=== PATIENT | male | born 1965 | race Caucasian/White ===

== ENCOUNTER → 2020-10-30 11:57 | Outpatient (CLI) | payer MEDICARE, OTHER, SELFPAY | PROVIDERS: Visit Provider Internal Medicine Gastroenterology | DX: Z01.812 Encounter for preprocedural laboratory examination (principal); Z20.822 Contact with and (suspected) exposure to COVID-19; Z12.11 Encounter for screening for malignant neoplasm of colon | CPT/HCPCS: U0003 ==

== ENCOUNTER 2020-11-01 07:11 | Day surgery (SDC) | payer MEDICARE, OTHER, SELFPAY ==
[2020-10-22 09:46] VITALS: BMI 24.7
[2020-11-01] VITALS (7 sets, daily range): BP systolic 107–146; BP diastolic 64–82; PULSE 71–95; RESP 18; TEMP 36.3–36.8; O2SAT 95–97
[2020-11-01 07:50] LABS: POC Glucose,Bedside 158 (70-110)
--- NOTE | 2020-11-01 08:29 | P.PCN_ITS ---
[facility] Procedure Note Procedure Note:: Colonoscopy Procedure Report: Colonoscopy with cold biopsies Endoscopist: Poli Goldstein II, MD Referring physician: Sonali North MD Date of Procedure: November 01, 2020 Equipment: Olympus 190 variable stiffness pediatric colonoscope Sedation: MAC sedation Indication: Mr. Urbina is a 55-year-old gentleman who is here for follow-up high risk screening colonoscopy. His mother had advanced adenomatous colon polyps and his maternal grandmother had colon cancer. The patient did have a colonoscopy in September 2008 which showed some mild proctitis. His last colonoscopy in October 2014 was entirely normal. He has not conveyed any abdominal complaints. He does have a history of reflux and dysphagia. Procedure: Prior to the procedure, a history and physical exam was performed, and patient's medications and allergies were reviewed. The risks, benefits and alternatives of the sedation and procedure were discussed with the patient. All questions were answered and informed consent was obtained. The patient was brought to the procedure room. Patient identification and proposed procedure were verified by the physician and the nurse. The patient was placed in a left lateral decubitus position and the scope was passed under direct vision. Throughout the procedure, the patient's blood pressure, pulse, and oxygen saturations were monitored continuously. The colonoscopy was accomplished without difficulty. The patient tolerated the procedure well. Findings: On digital rectal examination there was normal rectal tone. There were no external hemorrhoids. The colonoscope was introduced through the anal canal to the rectum and advanced to the cecum. The ileocecal valve and appendiceal orifice were identified. The scope was advanced a short distance into the ileum which appeared grossly normal. The scope was then withdrawn into the colon. There was some mild mucosal granularity, erythema and loss of vascular pattern in the cecum and ascending colon consistent with mild chronic colitis (i.e. Crohn's colitis) in the right colon. Cold biopsies were obtained. There were a few diverticuli primarily in the right colon. The remainder of the transverse, descending, sigmoid and rectum were normal. There were no other mucosal abnormalities identified. Upon retroflexion within the rectum there were grade 1-2 internal hemorrhoids.The preparation was excellent throughout with [place] Preparation Score of 9. The cecal time was 12 minutes. Impression: 1. Mild regional colitis (right colon) suggestive of mild Crohn's colitis 2. Mild right-sided diverticulosis 3. Grade 1-2 internal hemorrhoids Plan: I will follow-up the biopsies. Interestingly, he did have some mild proctitis at the time of his colonoscopy 12 years ago. He is clinically relatively asymptomatic. I would like to obtain CRP, sed rate, CBC, IBD serologies and iron studies.
--- NOTE | 2020-11-01 08:56 | P.PN_ITS ---
[facility] Anesthesia Checklist - Structural Data Admitted From: [facility] Planned Operative Procedure/s: colonoscopy Consent for Planned Operative Procedure(s) Verified: Yes - Additional verifications Anesthesia Reactions: No - Airway Assessment C-Spine Mobility Assessed: Yes TMJ Mobility Assessed: Yes Dentition: Poor Dentition - Neurological Assessment Level of Consciousness: Awake, Alert, Appropriate - Anesthesia Plan Anesthesia Risk discussed: Yes Anesthesia Plan: Verified ASA Class: III Anesthesia Type: MAC [facility] History I have reviewed the patient's past medical history: Yes Medical History: Reports:: Diabetes Mellitus Type 2, Seizures Denies:: Cancer, Diabetes Mellitus Type 1, Internal Pacemaker, Lung Disease, MRSA *Have you ever received a pneumonia vaccine?: Yes *Have you received a flu vaccine this season?: Yes Anesthesia experience/problems:: none Other Surgeries: No: Pacemaker Amputation: No Fractures: No - *Social History Smoking Status: Unknown if ever smoked Alcohol Intake: never Substance Use Type: denies use *Occupational Status:: disabled Housing: house Household Members: family *Travel in the last 8 weeks: None Family Hx:: No significant family history
[2020-11-01 10:42] LABS: Basophils # 0.1 K/mm3 (0-0.2); Basophils % 0.5 % (0.1-2.0); Eosinophils # 0.1 K/mm3 (0.0-0.4); Eosinophils % 1.7 % (0.1-12.0); Hematocrit 39.5 % (42.0-52.0); Hemoglobin 13.1 g/dL (14.1-18.0); Lymphocytes # 2.5 K/mm3 (0.7-4.5); Lymphocytes % 29.1 % (10-50); Mean Corpuscular HGB Conc 33.3 g/dL (31.8-35.4); Mean Corpuscular Hemoglobin 30.4 pg (27.0-31.2); Mean Corpuscular Volume 91.3 fl (80-94); Mean Platelet Volume 7.3 fl (7.4-10.4); Monocytes # 0.4 K/mm3 (0.1-1.0); Monocytes % 4.6 % (1.7-9.3); Neutrophils # 5.5 K/mm3 (1.8-7.8); Neutrophils % 64.1 % (37.0-80.0); Platelet Count 324 K/mm3 (142-424); Red Blood Count 4.32 M/mm3 (4.60-6.20); Red Cell Distribution Width 12.4 % (11.5-17.5); White Blood Count 8.6 K/mm3 (4.8-10.8)
[2020-11-01 10:58] LABS: Iron 75 ug/dL (49-181)
[2020-11-01 11:04] LABS: C-Reactive Protein 1.3 mg/L (0-4)
[2020-11-01 11:09] LABS: Erythrocyte Sedimentation Rate 18 mm/hr (0-20)
[2020-11-01 11:33] LABS: Ferritin 61.3 ng/ml (17.9-464)
[2020-11-01 14:40] LABS: Total Iron Binding Capacity 87 ug/dL (261-462)
[2020-11-06 13:34] LABS: Saccharomyces cerevisiae, IgA <20.0 Units (0.0-24.9); Saccharomyces cerevisiae, IgG 37.9 Units (0.0-24.9)
== END 2020-11-01 09:46 | disposition home or self-care (01) ==
LOC: OUTP 07:14
PROVIDERS: PCP Family Medicine; Visit Provider Internal Medicine Gastroenterology
PROC: 0DJD8ZZ Inspection of Lower Intestinal Tract, Via Natural or Artificial Opening Endoscopic (ICD-10-PCS; CPT 45378; principal; 2020-11-01 08:30)
DX: Z12.11 Encounter for screening for malignant neoplasm of colon (principal); K52.89 Other specified noninfective gastroenteritis and colitis; K57.30 Diverticulosis of large intestine without perforation or abscess without bleeding; K64.0 First degree hemorrhoids; Z87.19 Personal history of other diseases of the digestive system; Z83.71 Family history of colonic polyps; E11.9 Type 2 diabetes mellitus without complications; R56.9 Unspecified convulsions
CPT/HCPCS: G0105; 36415; 82728; 82962; 83540; 83550; 85025; 85651; 86140; 86256; 86671; 88305